=== PATIENT | male | born 1980 | race Two or more races ===

== ENCOUNTER 2023-02-17 12:29 | Emergency (ER) | payer OTHER ==
[~2023-02-17] VITALS: Ht 175.3 cm; Wt 72.6 kg
== END 2023-02-17 19:28 | disposition home or self-care (01) ==
LOC: ER 12:29
DX: M54.50 Low back pain, unspecified (principal)

== ENCOUNTER 2024-01-31 04:00 | Emergency (ER) | payer OTHER ==
[2024-01-31] MEDS ORDERED: CEFTRIAXONE SODIUM 1,000 MG VIAL IM STA (05:07)
[2024-01-31] MEDS ORDERED: HYDROCODONE/CHLORPHEN P-STIREX 5 ML ML PO STA (05:07)
[2024-01-31 05:52] LABS: HEMATOCRIT 41.1 % (39.0-48.0); HEMOGLOBIN 14.1 g/dL (13-16.00); MEAN CELL VOLUME 91.9 fL (80.0-100.00); MEAN CORPUSCULAR HEMOGLOBIN 31.5 pg (27.00-32.0); MEAN CORPUSCULAR HGB CONC 34.3 g/dl (32.0-36.0); PLATELET COUNT 336 K/uL (150-450); RED BLOOD COUNT 4.47 M/uL (4.00-6.00); RED CELL DISTRIBUTION WIDTH 13.4 % (11.5-14.5)
== END 2024-01-31 07:01 | disposition home or self-care (01) ==
LOC: ER 04:02
DX: J40 Bronchitis, not specified as acute or chronic (principal)
CPT/HCPCS: 36415; 96372; J0696